=== PATIENT | male | born 1945 | race Caucasian/White ===

== ENCOUNTER 2024-03-11 18:20 | Outpatient (CLI) | payer MEDICARE, BC, SELFPAY ==
[2024-03-11 19:07] LABS: Specific Gravity, Urine 1.015 (1.005-1.030); Urine Appearance Clear (CLEAR); Urine Color Yellow (Yellow); pH Urine 6 (5-7)
[2024-03-11 19:08] LABS: Add Urine Culture? No; Add Urine Microscopic? YES; Bacteria Urine TRACE /hpf; Bilirubin Urine Neg (Negative); Blood Urine Neg (Negative); Glucose Urine UA 2+ (Normal); Ketones Urine Negative (Negative); Leukocyte Esterase Urine Negative (Negative); Nitrate Urine Negative (Negative); Protein Urine Trace (Negative); Urobilinogen Urine Norm (Negative)
== END 2024-03-11 18:21 | disposition home or self-care (01) ==
LOC: LAB 18:23
PROVIDERS: PCP Family Medicine; Visit Provider Family Medicine
DX: N39.0 Urinary tract infection, site not specified (principal)
CPT/HCPCS: 81001; 87086

== ENCOUNTER 2024-03-14 09:22 | Outpatient (CLI) | payer MEDICARE, BC, SELFPAY ==
[2024-03-14 09:39] LABS: Basophils # 0.1 10^3/uL (0.0-0.1); Basophils % 0.6 %; Eosinophils # 0.3 10^3/uL (0.0-0.8); Eosinophils % 4.4 %; Hematocrit 37.4 % (37-53); Lymphocytes # 2.4 10^3/uL (0.8-4.8); Lymphocytes % 30.5 %; Mean Corpuscular HGB Conc 34.2 g/dL (30-55); Mean Corpuscular Hemoglobin 31.4 pg (27-33); Mean Corpuscular Volume 91.7 fl (82-101); Mean Platelet Volume 8.9 fL (7.4-10.4); Monocytes # 0.7 10^3/uL (0.2-0.9); Monocytes % 9.5 %; Neutrophils # 4.24 10^3/uL (1.8-7.7); Neutrophils % 54.7 %; Nucleated Red Blood Cells % 0 %; Platelet Count 169 10^3/cmm (157-399); Red Blood Count 4.08 10^6/uL (3.85-5.65); Red Cell Distribution Width 13.5 % (12.1-15.1); White Blood Count 7.75 10^3/uL (3.29-11.43)
[2024-03-14 10:33] LABS: 25 Hydroxy Vitamin D 35 ng/mL (30-100); Alanine Aminotransferase 15 U/L (0-41); Albumin Level 3.5 g/dL (3.5-5.2); Alkaline Phosphatase 128 U/L (40-130); Anion Gap 12.7 (5-19); Aspartate Amino Transferase 15 U/L (0-40); Blood Urea Nitrogen 22 mg/dL (8-23); Calcium 8.3 mg/dL (8.5-10.5); Carbon Dioxide 24 mmol/L (22-29); Chloride 110 mmol/L (98-107); Folate Level 11.8 ng/mL (4.5-32.2); Globulin 2.5 g/dL (1.3-4.6); Glucose 206 mg/dL (65-115); Osmolality Calculated 305 mOsm/kg (285-295); Potassium 3.7 mmol/L (3.5-5.1); Sodium 143 mmol/L (136-145); Thyroid Stimulating Hormone 1.15 uIU/mL (0.27-4.20); Total Bilirubin 0.3 mg/dL (0.15-1.2); Vitamin B12 350 pg/mL (232-1245)
== END 2024-03-14 09:23 | disposition home or self-care (01) ==
PROVIDERS: PCP Family Medicine; Visit Provider Family Medicine
DX: I10 Essential (primary) hypertension (principal); D64.9 Anemia, unspecified
CPT/HCPCS: 80053; 82306; 82607; 82746; 84443; 85025

== ENCOUNTER 2024-04-03 09:35 | Emergency (ER) | payer MEDICARE, BC, SELFPAY ==
[2024-04-03 09:37] VITALS: BP 145/103; PULSE 75; RESP 16; TEMP 36.8; O2SAT 96; BMI 25.0
--- NOTE | 2024-04-03 09:40 | CT_ITS ---
WS: [id number] CT CERVICAL TRAUMA TECHNIQUE: Noncontrast CT of the cervical spine with coronal and sagittal reformatted images. CLINICAL INFORMATION: trauma COMPARISON: None. DLP: 1261.[address] scans at [facility] use at least one of these dose optimization techniques: automated e xposure control; mA and/or kV adjustment per patient size (includes targeted exams where dose is matc hed to clinical indication); or iterative reconstruction. FINDINGS: Straightening with reversal of the normal cervical lordosis. Pannus formation at the C1-2 articulatio n.Postoperative changes ACDF C4-C6 with interbody fusion grafts. C7-T1 interbody fusion. No acute fra ctures. Moderate spondylitic changes. Normal prevertebral soft tissues. Mastoids air cells are well aerated. CT/CT cervical spin wo con* [id number] IMPRESSION: No evidence of acute fracture or dislocation.
--- NOTE | 2024-04-03 09:40 | CT_ITS ---
WS: [id number] CT HEAD TECHNIQUE: Noncontrast CT of the head obtained from the skullbase to the vertex. CLINICAL INFORMATION: trauma COMPARISON: None. DLP: 1261.[address] scans at [facility] use at least one of these dose optimization techniques: automated e xposure control; mA and/or kV adjustment per patient size (includes targeted exams where dose is matc hed to clinical indication); or iterative reconstruction. FINDINGS: Mixed attenuation RIGHT subdural hematoma with some scattered acute high attenuation blood products. Subdural hematoma measures approximately 1.7 cm in maximum transverse dimension. Moderate mass effect on the RIGHT frontal lobe and cerebral convexity. Mild mass effect of the RIGHT lateral ventricle.Mi ld RIGHT to LEFT midline shift measuring 4 mm. RIGHT frontal craniotomy and RIGHT frontal ebony hole. Moderate small vessel changes. Moderate parenchymal volume loss. Intracranial vascular calcification. Paranasal sinuses and mastoid air cells are well aerated. .Normal visualized soft tissues. CT/CT head wo con* [id number] IMPRESSION: 1. Mixed attenuation acute on chronic RIGHT frontal subdural hematoma with joyce e scattered increased attenuation acute appearing blood products. This measures 1.7 cm in maximal transverse dimension. 2. Moderate mass effect on the underlying RIGHT frontal lobe with RIGHT to LEF T midline shift measuring 4 mm. 3. No hydrocephalus. 4. RIGHT frontal ebony hole and craniotomy. Notified Ovi Casillas DO at 04/03/2024 10:47 AM.
--- NOTE | 2024-04-03 10:03 | ED_ITS ---
HPI - Fall 2 General: Chief Complaint: Fall Stated Complaint: Fall, Hit head Time Seen by Provider: 04/03/24 09:39 Source: patient Mode of arrival: ambulatory History of Present Illness: 78-year-old male presents emergency room after a fall. Present patient presents via EMS he lives at [place] reportedly fell this morning. Does have some Alzheimer's dementia according to his chart. Initially when I talk to the patient is not able to tell me any specifics of why he is here or when he fell he relates to me last time he fell was over a week a week ago and denies any loss consciousness denies any symptoms at all no chest pain no difficulty breathing no abdominal pain. Nursing staff was given report that he fell this morning unwitnessed at [place] and has a history of a previous fall that resulted in a brain bleed that did not require any intervention which is monitored. He is not currently on any anticoagulants. He tells me he fell because he stumbled complaint: fall Onset (ago): minute(s) Fall from: standing Fall witnessed: no Place fall occurred: [facility] living[facility] Loss of consciousness: None Context: tripped/slipped Associated symptoms-after fall: Reports confusion; Denies abdominal pain, chest pain, difficulty walking, headache(s), neck pain, numbness, short of breath, vertigo or weakness Review of Systems 2 Const: Denies: fever(s) or chills Card: Denies: chest pain or palpitations Resp: Denies: dyspnea GI: Denies: abdominal pain, nausea or vomiting : Denies: dysuria, urinary frequency or urinary urgency Musc: Denies: neck pain or back pain Skin/Breast: Denies: rash Neuro: Reports: confusion; Denies: headache(s), difficulty walking or vertigo Physical Exam 2 Const: GENERAL APPEARANCE: cooperative and comfortable O RIENTATION/CONSCIOUSNESS: Yes awake HENMT: COMMON NORMALS: normocephalic, atraumatic and hearing grossly normal bilaterally HEAD & SCALP: normocephalic and atraumatic Resp: COMMON NORMALS: normal respiratory effort, No retractions, No use of accessory muscles and clear to auscultation bilaterally AUSCULTATION: clear to auscultation bilaterally Cardio: COMMON NORMALS: regular rate, regular rhythm and No murmurs present (Cardio) RATE: regular rate RHYTHM: regular rhythm GI: COMMON NORMALS: Soft to palpation and No hepatosplenomegaly present A USCULTATION: Yes normoactive bowel sounds PALPATION: Yes Soft to palpation, No Tenderness to palpation present (GI), No Guarding due to palpation present (GI) and Yes No hepatosplenomegaly present Extremity: COMMON NORMALS: normal to inspection, capillary refill normal, no clubbing, cyanosis or edema, no calf tenderness and no pedal edema Neuro: OTHER: No focal neurologic deficits are noted. Patient is generally confused difficult to gather history from. This is consistent with his diagnosis. His dementia Skin: COMMON NORMALS: no rashes or lesions noted GENERAL SKIN EXAM: no rashes or lesions noted Course 2 Vital Signs: Vital signs: Vital Signs Temperature 98.3 F 04/03/24 09:37 Pulse Rate 77 04/03/24 12:06 Respiratory Rate 25 H 04/03/24 12:06 Blood Pressure 145/103 04/03/24 09:37 Pulse Oximetry 94 04/03/24 12:06 Oxygen Delivery Me thod Room Air 04/03/24 12:06 MDM - Fall Medical Decision Making Acute on chronic subdural hematoma with mixed blood products there is a slight midline shift in the frontal region of approximately 4 mm. We do not have any old films to compare to. Will transfer to [facility] Dr. Lemus will be receiving transfer ER to ER via [facility] ambulance. Medical Records I reviewed the patient's medical records. Lab Data I reviewed the patient's lab results. 04/03/24 10:04 04/03/24 10:04 Radiology Impressions Cervical Spine CT 04/03/24 09:40 IMPRESSION: No evidence of acute fracture or dislocation. Head CT 04/03/24 09:40 IMPRESSION: 1. Mixed attenuation acute on chronic RIGHT frontal subdural hematoma with some scattered increased attenuation acute appearing blood products. This measures 1.7 cm in maximal transverse dimension. 2. Moderate mass effect on the underlying RIGHT frontal lobe with RIGHT to LEFT midline shift measuring 4 mm. 3. No hydrocephalus. 4. RIGHT frontal ebony hole and craniotomy. Notified Ovi Casillas DO at 04/03/2024 10:47 AM. Laboratory Results WBC 10.75 10^3/uL (3.29-11.43) 04/03/24 10:04 RBC 4.40 10^6/uL (3.85-5.65) 04/03/24 10:04 Hgb 13.90 g/dL (11.27-16.99) 04/03/24 10:04 Hct 40.5 % (37-53) 04/03/24 10:04 MCV 92.0 fl (82-101) 04/03/24 10:04 MCH 31.6 pg (27-33) 04/03/24 10:04 MCHC 34.3 g/dL (30-55) 04/03/24 10:04 RDW 12.9 % (12.1-15.1) 04/03/24 10:04 Plt Count 191 10^3/cmm (157-399) 04/03/24 10:04 MPV 9.0 fL (7.4-10.4) 04/03/24 10:04 Neut % (Auto) 69.7 % 04/03/24 10:04 Lymph % (Auto) 17.5 % 04/03/24 10:04 Nash % (Auto) 10.9 % 04/03/24 10:04 Eos % (Auto) 0.9 % 04/03/24 10:04 Baso % (Auto) 0.6 % 04/03/24 10:04 Neut # (Auto) 7.50 10^3/uL (1.8-7.7) 04/03/24 10:04 Lymph # (Auto) 1.9 10^3/uL (0.8-4.8) 04/03/24 10:04 Nash # (Auto) 1.2 10^3/uL (0.2-0.9) H 04/03/24 10:04 Eos # (Auto) 0.1 10^3/uL (0.0-0.8) 04/03/24 10:04 Baso # (Auto) 0.1 10^3/uL (0.0-0.1) 04/03/24 10:04 Nucleated RBC % (auto) 0 % 04/03/24 10:04 Nucleated RBCs # 0.0 /100WBC 04/03/24 10:04 Sodium 142 mmol/L (136-145) 04/03/24 10:04 Potassium 3.8 mmol/L (3.5-5.1) 04/03/24 10:04 Chloride 106 mmol/L (98-107) 04/03/24 10:04 Carbon Dioxide 24 mmol/L (22-29) 04/03/24 10:04 Anion Gap 15.8 (5-19) 04/03/24 10:04 BUN 15 mg/dL (8-23) 04/03/24 10:04 Creatinine 0.9 mg/dL (0.7-1.2) 04/03/24 10:04 GFR Calculation Not Reportable 04/03/24 10:04 Glucose 160 mg/dL (65-115) H 04/03/24 10:04 Calculated Osmolality 298 mOsm/kg (285-295) H 04/03/24 10:04 Calcium 8.9 mg/dL (8.5-10.5) 04/03/24 10:04 Total Bilirubin 0.6 mg/dL (0.15-1.2) 04/03/24 10:04 AST 14 U/L (0-40) 04/03/24 10:04 ALT 8 U/L (0-41) 04/03/24 10:04 Alkaline Phosphatase 124 U/L (40-130) 04/03/24 10:04 Total Protein 6.7 g/dL (6.6-8.7) 04/03/24 10:04 Albumin 3.6 g/dL (3.5-5.2) 04/03/24 10:04 Globulin 3.1 g/dL (1.3-4.6) 04/03/24 10:04 All radiology interpretation(s) finalized by discharge Discharge Plan Discharge Patient Disposition: Transfer to ED Clinical Impression: Acute subdural hematoma, Severe Alzheimer's dementia with anxiety, Lives in assisted living facility Condition: Stable Prescriptions: No Action quetiapine 50 mg tablet 50 mg PO BID Qty: 60 5RF lorazepam 0.5 mg tablet See Rx Instructions PO QID PRN (Reason: anxiety) Qty: 120 0RF Rx Instructions: May take 1-2 tablets by mouth four times daily as needed for anxiety. acetaminophen 325 mg Tablet 650 mg PO Q6H PRN (Reason: Pain) amlodipine 5 mg tablet 5 mg PO DAILY glipizide 2.5 mg tablet extended release 24hr 2.5 mg PO DAILY Colace 100 mg Capsule 100 mg PO BID mupirocin 2 % ointment See Rx Instructions .ROUTE .COMPLEX Rx Instructions: Apply 1 application topically to left buttock rash every evening. Referrals: Luc Gold DO [Primary Care Provider] - Coding Level of Care Code ED Record Press Tender for Jessica Sauer
[2024-04-03 10:09] LABS: Basophils # 0.1 10^3/uL (0.0-0.1); Basophils % 0.6 %; Eosinophils # 0.1 10^3/uL (0.0-0.8); Eosinophils % 0.9 %; Hematocrit 40.5 % (37-53); Lymphocytes # 1.9 10^3/uL (0.8-4.8); Lymphocytes % 17.5 %; Mean Corpuscular HGB Conc 34.3 g/dL (30-55); Mean Corpuscular Hemoglobin 31.6 pg (27-33); Monocytes # 1.2 10^3/uL (0.2-0.9); Monocytes % 10.9 %; Neutrophils % 69.7 %; Nucleated Red Blood Cells % 0 %; Platelet Count 191 10^3/cmm (157-399); Red Cell Distribution Width 12.9 % (12.1-15.1); White Blood Count 10.75 10^3/uL (3.29-11.43)
[2024-04-03 10:27] LABS: Alanine Aminotransferase 8 U/L (0-41); Albumin Level 3.6 g/dL (3.5-5.2); Alkaline Phosphatase 124 U/L (40-130); Anion Gap 15.8 (5-19); Aspartate Amino Transferase 14 U/L (0-40); Blood Urea Nitrogen 15 mg/dL (8-23); Calcium 8.9 mg/dL (8.5-10.5); Carbon Dioxide 24 mmol/L (22-29); Chloride 106 mmol/L (98-107); Creatinine Clr Calc Pharmacy 65.7219; Globulin 3.1 g/dL (1.3-4.6); Glucose 160 mg/dL (65-115); Osmolality Calculated 298 mOsm/kg (285-295); Potassium 3.8 mmol/L (3.5-5.1); Sodium 142 mmol/L (136-145); Total Bilirubin 0.6 mg/dL (0.15-1.2); Total Protein 6.7 g/dL (6.6-8.7)
--- NOTE | 2024-04-03 11:58 | PC.PHAR ---
PT IS FROM [facility]
[2024-04-03 12:06] VITALS: PULSE 77; RESP 25; O2SAT 94
--- NOTE | 2024-04-03 12:48 | PC.NURSE ---
PT URINATED ON SELF. PT CATHED FOR URINE SAMPLE WITH NO RETURN.
== END 2024-04-03 12:48 ==
PROVIDERS: Emergency Provider Family Medicine; PCP Family Medicine
DX: S06.5XAA Traumatic subdural hemorrhage with loss of consciousness status unknown, initial encounter (principal); G30.9 Alzheimer's disease, unspecified; F02.C4 Dementia in other diseases classified elsewhere, severe, with anxiety; Z79.84 Long term (current) use of oral hypoglycemic drugs; W19.XXXA Unspecified fall, initial encounter; Y92.099 Unspecified place in other non-institutional residence as the place of occurrence of the external cause
CPT/HCPCS: 36415; 70450; 72125; 80053; 85025; 99284

== ENCOUNTER 2024-04-28 13:49 | Emergency (ER) | payer MEDICARE, BC, SELFPAY ==
[2024-04-28 13:50] VITALS: BP 117/81; PULSE 77; RESP 18; TEMP 36.8; O2SAT 97; BMI 30.5
--- NOTE | 2024-04-28 13:56 | CTR_ITS ---
PROCEDURE INFORMATION: Exam: CT Head Without Contrast Exam date and time: 04/28/2024 2:20 PM Age: 78 years old Clinical indication: Injury or trauma; Fall; Blunt trauma (contusions or hematomas); Prior surgery; Surgery date: 6+ months; Surgery type: Brain and neck; Additional info: Fall injury TECHNIQUE: Imaging protocol: Computed tomography of the head without contrast. Radiation optimization: All CT scans at this facility use at least one of these dose optimization techniques: automated exposure control; mA and/or kV adjustment per patient size (includes targeted exams where dose is matched to clinical indication); or iterative reconstruction. COMPARISON: CT head wo con* [id number] 04/03/2024 10:23 AM RADIATION DOSE METRICS: Total DLP (mGy-cm): 736.9 FINDINGS: Brain: Interval significant decrease in size of anterolateral right cerebral convexity extra-axial fluid collection, previously maximally measuring 17.7 mm, now 9.1 mm, now containing a small amount of gas, presumed to be postprocedural. Interval subcortical infarction posterosuperior right frontal lobe white matter. Interval resolution of leftward shift of midline structures. Chronic anterior right external capsular white matter lacunar infarction. Moderate hypoattenuating foci are noted in the anterior lateral ventricular periventricular white matter bilaterally. No intracranial hemorrhage. No mass or acute cortical infarction identified. Ventricles: Prominence of the ventricular system and subarachnoid spaces is consistent with the patient's age of 78 years. Paranasal sinuses: Visualized sinuses are unremarkable. No fluid levels. Mastoid air cells: Visualized mastoid air cells are well aerated. Bones: Previous right frontal and parietal bone ebony holes. Anterior interval lower right parietal ebony hole. Soft tissues: Unremarkable. Vasculature: Atherosclerotic calcifications are present involving the carotid artery siphons bilaterally. CT/CT head wo con* [id number] IMPRESSION: 1. Interval significant decrease in size of anterolateral right cerebral convexity extra-axial fluid collection. 2. Interval subcortical infarction posterosuperior right frontal lobe white matter. 3. Chronic anterior right external capsular white matter lacunar infarction. 4. Age appropriate supratentorial and infratentorial atrophy. 5. Moderate chronic white matter microvascular ischemic disease. 6. No interval/acute intracranial traumatic injury identified.
--- NOTE | 2024-04-28 13:56 | CTR_ITS ---
PROCEDURE INFORMATION: Exam: CT Cervical Spine Without Contrast Exam date and time: 04/28/2024 2:20 PM Age: 78 years old Clinical indication: Injury or trauma; Fall; Blunt trauma; Prior surgery; Surgery date: 6+ months; Surgery type: Brain and neck; Additional info: Fall injury TECHNIQUE: Imaging protocol: Computed tomography of the cervical spine without contrast. Radiation optimization: All CT scans at this facility use at least one of these dose optimization techniques: automated exposure control; mA and/or kV adjustment per patient size (includes targeted exams where dose is matched to clinical indication); or iterative reconstruction. COMPARISON: CT cervical spin wo con* [id number] 04/03/2024 10:23 AM RADIATION DOSE METRICS: Total DLP (mGy-cm): 554.9 FINDINGS: Bones: Anterior cervical discectomy and fusion has been performed at the C4-C5-C5-C6 levels. The intervertebral body grafts are fused. The metallic hardware appears intact and in good position. Moderate atlantodental osteoarthritis. No fracture. No destructive bony process identified. Bilateral C2-C3 and C3-C4 facet joint fusion. Posterior C3-C4 disc fusion. Severe left C3-C4 neural foraminal narrowing. Partial fusion bilateral C4-C5 facet joints. Severe bilateral C4-C5 neural foraminal narrowing. Severe right, moderate left C5-C6 neural foraminal narrowing. Moderately severe bilateral C6-C7 neural foraminal narrowing. Mild left, moderate right C7-T1 primary facet osteoarthritis. Mild C7-T1 anterolisthesis. Lungs: Left upper lobe calcified pulmonary parenchymal granuloma. Mild paraseptal emphysema bilaterally. Vasculature: Bilateral carotid atherosclerotic calcifications. Soft tissues: Unremarkable. CT/CT cervical spin wo con* [id number] IMPRESSION: 1. Postoperative changes as above. 2. Degenerative changes as above. 3. No acute cervical spinal bony injury identified. 4. Pulmonary emphysema.
--- NOTE | 2024-04-28 14:01 | ED_ITS ---
HPI - Fall General: Chief Complaint: Fall Stated Complaint: HEAD PAIN S/P FALL Time Seen by Provider: 04/28/24 13:56 History of Present Illness: 78-year-old male patient comes in today for head injury. Patient was sitting in the chair that tipped over backwards causing him to strike his head against the back of the floor. Patient has a history of dementia. Patient resides at [facility]. Patient takes no blood thinners or daily aspirin. Patient does take medications for diabetes mellitus type 2, anxiety, and blood pressure. Patient has a history of 2 prior brain injuries with bleeding. Last head injury with a bleed was on April 07, 2024. Patient has scarring to the scalp of the right parietal area. Review of the previous CT scan did note a bur hole in that area. Patient denies any pain or headache. Patient has an area of tenderness to the occipital scalp. Review of Systems General: Reports: 10 or more systems reviewed and unremarkable except in HPI and below Physical Exam Const: COMMON NORMALS: alert HENMT: COMMON NORMALS: atraumatic HEAD & SCALP: atraumatic and other (Tenderness to the occipital area of the scalp.) FACE & SINUS: normal facial exam MOUTH: Normal oral and palatal mucosa present OTHER: Scarring to the right parietal scalp. Neck/C-Spine: COMMON NORMALS: full ROM Resp: COMMON NORMALS: normal respiratory effort and clear to auscultation bilaterally AUSCULTATION: clear to auscultation bilaterally Cardio: COMMON NORMALS: regular rate RATE: regular rate Back/Pelvis: COMMON NORMALS: thoracic and lumbar spine normal to inspection Extremity: COMMON NORMALS: full ROM Neuro: SENSORIUM/ORIENTATION: Yes alert Skin: COMMON NORMALS: turgor normal GENERAL SKIN EXAM: turgor normal Course Vital Signs: Vital signs: Vital Signs Temperature 98.2 F 04/28/24 13:50 Pulse Rate 77 04/28/24 13:50 Respiratory Rate 18 04/28/24 14:20 Blood Pressure 129/70 04/28/24 14:20 Pulse Oximetry 97 04/28/24 14:36 Oxygen Delivery Me thod Room Air 04/28/24 14:36 MDM - Fall Medical Decision Making 78-year-old male patient comes in today for injury to the head. Patient had fell when the chair tipped over it that he was setting in. Patient struck the right occipital area of the scalp against the floor. Patient denies any headache and no reported loss of consciousness. Patient appears nontoxic. Patient moves all extremities well. Respirations are even. Skin is warm and dry. Pupils are equal and reactive. Differential diagnosis intracranial bleeding, skull fracture, cervical fracture. CT of the head and neck noted no obvious acute abnormality. Will allow [facility] with recommendations for monitoring and follow-up. Lab Data Radiology Impressions Cervical Spine CT 04/28/24 13:56 IMPRESSION: 1. Postoperative changes as above. 2. Degenerative changes as above. 3. No acute cervical spinal bony injury identified. 4. Pulmonary emphysema. Head CT 04/28/24 13:56 IMPRESSION: 1. Interval significant decrease in size of anterolateral right cerebral convexity extra-axial fluid collection. 2. Interval subcortical infarction posterosuperior right frontal lobe white matter. 3. Chronic anterior right external capsular white matter lacunar infarction. 4. Age appropriate supratentorial and infratentorial atrophy. 5. Moderate chronic white matter microvascular ischemic disease. 6. No interval/acute intracranial traumatic injury identified. All radiology interpretation(s) finalized by discharge Discharge Plan Discharge Patient Disposition: Home Clinical Impression: Accidental fall from chair Qualifiers: Encounter type: initial encounter Qualified Code(s): W07.XXXA - Fall from chair, initial encounter Head injury Qualifiers: Encounter type: initial encounter Qualified Code(s): S09.90XA - Unspecified injury of head, initial encounter Condition: Stable Prescriptions: No Action quetiapine 50 mg tablet 50 mg PO BID Qty: 60 5RF lorazepam 0.5 mg tablet See Rx Instructions PO BID Qty: 60 5RF Rx Instructions: One tablet orally twice a day at 0800 and 1400. lorazepam 0.5 mg tablet 0.5 mg PO BID PRN (Reason: anxiety) Qty: 60 5RF Rx Instructions: May have additional one tab BID as needed for anxiety. hydrocodone-acetaminophen 10-325 mg tablet 1 tab PO Q8H PRN (Reason: pain) 30 Days Qty: 60 0RF acetaminophen 325 mg Tablet 650 mg PO Q6H PRN (Reason: Pain) amlodipine 5 mg tablet 5 mg PO DAILY glipizide 2.5 mg tablet extended release 24hr 2.5 mg PO DAILY Colace 100 mg Capsule 100 mg PO BID mupirocin 2 % ointment See Rx Instructions .ROUTE .COMPLEX Rx Instructions: Apply 1 application topically to left buttock rash every evening. Discharge Orders: Discharge ED (Routine); Ordered 04/28/24 Ordered By: Chiki Edwards Referrals: Luc Gold DO [Primary Care Provider] - Discharge Diet: Usual diet Discharge Activity: Increase activity as tolerated Patient Instructions: Fall Prevention (ED) Activity Restrictions/Additional Instructions: Follow-up with PCP in 2 to 3 days for recheck. Return to ED for worsening symptoms such as severe headache, unresponsiveness, or seizure-like activity. Coding Level of Care Code ED Certified Diabetes Educator for Jessica Sauer
[2024-04-28 14:20] VITALS: BP 129/70; RESP 18
[2024-04-28 14:36] VITALS: O2SAT 97
== END 2024-04-28 17:52 | disposition home or self-care (01) ==
PROVIDERS: Emergency Provider Nurse Practitioner Family; PCP Family Medicine
DX: S09.90XA Unspecified injury of head, initial encounter (principal); Z79.84 Long term (current) use of oral hypoglycemic drugs; E11.9 Type 2 diabetes mellitus without complications; F03.90 Unspecified dementia, unspecified severity, without behavioral disturbance, psychotic disturbance, mood disturbance, and anxiety; W07.XXXA Fall from chair, initial encounter; Y92.129 Unspecified place in nursing home as the place of occurrence of the external cause
CPT/HCPCS: 70450; 72125; 99284

== ENCOUNTER 2024-06-01 16:17 | Outpatient (CLI) | payer MEDICARE, BC, SELFPAY ==
[2024-06-01 18:52] LABS: Clostridioides Difficile Toxin NEGATIVE (Negative)
[2024-06-03 10:25] LABS: C.Diff PCR (Lab) POSITIVE (Negative)
== END 2024-06-01 16:18 | disposition home or self-care (01) ==
LOC: LAB 16:20
PROVIDERS: PCP Family Medicine; Visit Provider Family Medicine
DX: A04.71 Enterocolitis due to Clostridium difficile, recurrent (principal)
CPT/HCPCS: 83630; 87045; 87177; 87209; 87324; 87427; 87449; 87493